=== PATIENT | male | born 1960 | race Two or more races ===

== ENCOUNTER 2023-08-10 06:45 | Emergency (ER) | payer MEDICARE, MEDICAID ==
[~2023-08-10] VITALS: Ht 172.7 cm; Wt 88.5 kg
[~2023-08-10 06:45] MED LIST: ASPI-543 PO; METF-370 PO
[2023-08-10] MEDS ORDERED: LIDOCAINE 1% HCL (LOCAL ANESTH.) INJ 20ML MDV ONE (07:04)
[2023-08-10 07:12] LABS: Basophils # (auto) 0 10 ^3/uL (0-0.2); Eosinophils # (auto) 0.2 10 ^3/uL (0-0.8); Eosinophils % (auto) 4.7 % (0.0-7.0); Hematocrit 28.8 % (41.0-53.0); Hemoglobin 9.9 g/dL (13.5-17.5); Lymphocytes # (auto) 0.9 10 ^3/uL (0.4-5.4); Lymphocytes % (auto) 23.8 % (10.0-50.0); Mean Corpuscular Hemoglobin 32.2 pg (28.0-32.0); Mean Corpuscular Hgb Conc. 34.3 g/dL (32.0-36.0); Mean Corpuscular Volume 94.1 fL (80.0-100.0); Monocytes # (auto) 0.2 10 ^3/uL (0-1.3); Monocytes % (auto) 4.8 % (0.0-12.0); Neutrophils # (auto) 2.5 10 ^3/uL (1.6-8.6); Neutrophils % (auto) 65.7 % (37.0-80.0); Nucleated Red Blood Cells % 0.2 %; Red Blood Cells 3.07 10^6/uL (4.5-5.90); Red Cell Distribution Width 16.7 % (11.8-14.3); White Blood Cell 3.8 10^3/uL (4.4-10.8)
[2023-08-10 07:34] LABS: Chloride 102 mmol/L (98-107); Potassium 4.6 mmol/L (3.5-5.1); Sodium 139 mmol/L (136-145)
[2023-08-10 07:35] LABS: Anion Gap 16 (5-15); Calcium 9.3 mg/dL (8.5-10.1); Carbon Dioxide 21 mmol/L (20-30)
[2023-08-10 07:40] LABS: BUN/Creatinine Ratio 9.3 (10.0-20.0); Glucose 178 mg/dL (74-106)
[2023-08-10 07:43] LABS: INR 1.09 (0.9-1.15); Prothrombin Time 11.4 sec (9.3-11.8)
[2023-08-10 07:46] LABS: Partial Thromboplastin Time 104.8 SEC (24.5-34.5)
[2023-08-10 07:53] LABS: Blood Urea Nitrogen 93 mg/dL (9-23)
[2023-08-10] MEDS ORDERED: LIDOCAINE 1% HCL (LOCAL ANESTH.) INJ 20ML MDV ID ONE (08:15)
[2023-08-10 09:26] VITALS: BP 148/77; PULSE 68; RESP 20; TEMP 98.2; O2SAT 96
== END 2023-08-10 10:02 | disposition home or self-care (01) ==
LOC: ER 06:45 → EDBD 06:45 → ER 10:02
DX: T82.838A Hemorrhage due to vascular prosthetic devices, implants and grafts, initial encounter (principal); I12.9 Hypertensive chronic kidney disease with stage 1 through stage 4 chronic kidney disease, or unspecified chronic kidney disease; E11.22 Type 2 diabetes mellitus with diabetic chronic kidney disease; N18.9 Chronic kidney disease, unspecified; I25.10 Atherosclerotic heart disease of native coronary artery without angina pectoris; E78.5 Hyperlipidemia, unspecified; Z79.82 Long term (current) use of aspirin; Z79.899 Other long term (current) drug therapy
CPT/HCPCS: 12001; 36415; 80048; 85025; 85610; 85730; 99283; J2001

== ENCOUNTER 2024-09-24 20:21 | Inpatient (IN) | payer MEDICARE, MEDICAID ==
[~2024-09-24] VITALS: Ht 172.7 cm; Wt 87.9 kg
--- NOTE | 2024-09-24 20:42 | ED.PDOC ---
GI ASSESSMENT HPI Comments 64 y/o M with PMHX of DM, HTN, HLD, and CAD presents to the ED for CC of vomiting. Patient states that he has been vomiting for x2days with associated symptoms of abdominal pain, nausea, and diarrhea. Patient describes, vomit to be brown emesis. Patient currently receives dialysis on Monday, Monday, and and is complainant with his appointments. Patient denies social history. Patient denies fever, chills, body-aches, or loss of appetite. No new symptoms or modifying factors at this time. Time Seen by MD: 20:35 Primary Care Provider: ERIKA Reviewed Notes: Nurses Notes, Medications, Allergies Allergies: Coded Allergies: NO KNOWN ALLERGIES (Unverified , 10/08/14) Home Meds Reported Medications Aspirin (Aspir-Low) 81 Mg Tab, 81 MG PO DAILY for 30 Days, MG 04/12/19 Metformin Hydrochloride (Metformin Hcl) 500 Mg Tab, 500 MG PO IBID for 30 Days, MG 04/12/19 Information Source: Patient Mode of Arrival: Ambulatory Timing: Days Duration: Since onset Prehospital treatment: None Quality: None Vomitus: Watery Stool: Watery Severity: Moderate Recent: None Recent Hx of: Diabetes Pain Location: Diffuse Modifying Factors: Nothing Associated sign and symptoms: Nausea, Vomiting, Diarrhea Past Medical History PAST MEDICAL HISTORY: CAD, CKF, DM, High Lipids, HTN Surgical History: PTCA Family History Family History: Reviewed,noncontributory to illness Social History Smoker: Non-Smoker Alcohol: Denies ETOH Use Drugs: Denies Drug Use Lives In: Home Constitutional: denies: chills, diaphoresis, fatigue, fever, malaise, sweats, weakness, others EENTM: denies: blurred vision, double vision, ear bleeding, ear discharge, ear drainage, ear pain, ear ringing, eye pain, eye redness, hearing loss, mouth pain , mouth swelling, nasal discharge, nose bleeding, nose congestion, nose pain, photophobia, tearing, throat pain, throat swelling, voice changes, others Respiratory: denies: cough, hemoptysis, orthopnea, SOB at rest, shortness of breath, SOB with excertion, stridor, wheezing, others Cardiovascular: denies: chest pain, dizzy spells, diaphoresis, Dyspnea on exertion, edema, irregular heart beat, left arm pain, lightheadedness, palpitations, PND, syncope, others Gastrointestinal: reports: abdominal pain, diarrhea, vomiting; denies: abdomen distended, blood streaked bowels, constipated, dysphagia, difficulty swallowing, hematemesis, melena, nausea, poor appetite, poor fluid intake, rectal bleeding, rectal pain, others Genitourinary: denies: burning, dysuria, flank pain, frequency, hematuria, incontinence, penile discharge, penile sore, pain, testicle pain, testicle swelling, urgency, others Neurological: reports: headache; denies: dizziness, fainting, left sided numbness, left sided weakness, numbness, paresthesia, pre-existing deficit, right sided numbness, right sided weakness, seizure, speech problems, tingling, tremors, weakness, others Musculoskeletal: denies: back pain, gout, joint pain, joint swelling, muscle pain, muscle stiffness, neck pain, others Integumetry: denies: bruises, change in color, change in hair/nails, dryness, laceration, lesions, lumps, rash, wounds, others Allergic/Immunocompromised: denies: Difficulty Healing, Frequent Infections, Hives, Itching, others Hematologic/Lymphatic: denies: anemia, blood clots, easy bleeding, easy bruising, swollen glands, others Endocrine: denies: excessive hunger, excessive sweating, excessive thirst, excessive urination, flushing, intolerance to cold, intolerance to heat, unexplained weight gain, unexplained weight loss, others Psychiatric: denies: anxiety, bipolar disorder, depression, hopeless, panic disorder, schizophrenia, sleepless, suicidal, others All Other Systems: Reviewed and Negative Physical Exam General Appearance: Moderate Distress HEENT: Normal ENT Inspection, Pharynx Normal, TMs Normal Neck: Full Range of Motion, Non-Tender, Normal, Normal Inspection Respiratory: Chest Non-Tender, Lungs Clear, No Accessory Muscle Use, No Respiratory Distress, Normal Breath Sounds Cardiovascular: No Edema, No JVD, No Murmur, No Gallop, Normal Peripheral Pu lses, Regular Rate/Rhythm Breast Exam: Deferred Gastrointestinal: Diffuse, No Organomegaly, No Pulsatile Mass, Normal Bowel Sounds, Soft, Tenderness Genitalia: Deferred Pelvic: Deferred Rectal: Deferred Extremities: No calf tenderness, Normal capillary refill, Normal range of motion, Non-tender, No pedal edema, Other (The patient has a fistula to the right upper extremity for dialysis) Musculoskeletal : Apperance: Normal Neurologic: Alert, director of partnerships II-XII nml as Tested, No Motor Deficits, Normal Affect, Normal Mood, No Sensory Deficits Cerebellar Function: Normal Reflexes: Normal Skin: Dry, Normal Color, Warm Lymphatic: No Adenopathy Was a procedure done? Was a procedure done?: No GI differential Dx Differential Diagnosis: Gastritis/PUD, Gastroenteritis, Electrolyte Imbalance, Food Poisoning, Bacterial, Viral X-Ray, Labs, Meds, VS Vital Signs Date Time Temp Pulse Resp B/P (MAP) Pulse Ox O2 Delivery O2 Flow Rate FiO2 09/24/24 20:25 97.6 60 18 174/78 (110) 96 CT scan of the abdomen and pelvis shows: IMPRESSION: 1. No free air no free fluid 2. No CT findings to suggest bowel obstruction 3. No calcified gallstones 4. Perirenal stranding bilaterally without hydronephrosis or nephrolithiasis. Renal infection is raised. 5. Postop changes L4-5 and L5-S1 6. 5 cm device in the lower left pelvis adjacent to the bladder correlate with surgical history. IV Hep-Lock has been established The patient's labs are pending The patient was being admitted to the hospitalist Images Reviewed?: Images reviewed and evaluated by me Time of 1ST Reevaluation: 21:05 Reevaluation 1ST: Unchanged Patient Education/Counseling: Diagnosis, Treatment, Prognosis Family Education/Counseling: No Family Present Departure 1 Departure Time of Disposition: 21:46 Impression: Primary Impression: Intractable abdominal pain Additional Impression: Intractable vomiting Disposition: ADMITTED INPATIENT Admit to: Med Surg Condition: Fair Critical Care Note Critical Care Time?: No Stability Stability form required: Yes Unstable for transfer: ED Physician Assesment (Clinical assesment) Heart Score Heart Score: Heart Score Response (Comments) Value History N/A 0 EKG N/A 0 Age N/A 0 Risk Factors N/A 0 Troponin N/A 0 Total 0 I personally scribed for PRETTY HEALY MD ([email or web address]) on 09/24/24 at 20:42. Electronically submitted by Kim Bustamante [email or web address]). PRETTY HEALY MD Sep 24, 2024 20:42
[2024-09-24] MEDS: ONDANSETRON HCL 4 MG/2 ML VIAL IV ONE (20:45)
--- NOTE | 2024-09-24 21:37 | DVH ---
Exam: CT CT AB PEL WO CON-NO ORAL OR IV History: pain Comparison Study: None available at time of dictation. TECHNIQUE: Multidetector CT of the abdomen was performed from lung bases to pubic symphysis. Imaging was performed without IV contrast. Axial, coronal and sagittal multiplanar reformats were obtained fr om the axial data set by the technologist. Radiation Dose Information: CT Dose: CTDI volume is 12.1 mGy. Dose-length product is 690.93 mGy*cm FINDINGS: Evaluation of solid organs is limited due to lack of intravenous contrast use. Findings: Lung Bases: Airspace disease posteriorly in the left lower lobe. Cardiac size is enlarged with of th e coronary artery calcifications. No pleural or pericardial effusion. Liver: The liver is normal in size. No focal lesions. Gallbladder and Biliary Tree: Unremarkable Spleen: Unremarkable Pancreas: The pancreas is grossly normal in appearance. Adrenal Glands: Unremarkable Kidneys: Kidneys are grossly normal without calculi or hydronephrosis. Bladder: Grossly unremarkable for degree of distention. Bowel: The stomach is grossly normal in appearance. Small bowel and colon are normal in caliber and d istribution. The appendix is not visualized; however, no secondary findings of acute appendicitis id entified. Ascites: Absent Lymphadenopathy: No mesenteric, retroperitoneal or periportal lymphadenopathy. Abdominal Wall and Mesentery: Unremarkable. Vasculature: The visualized abdominal aorta is normal in size and caliber. Evaluation of abdominal a nd pelvic vessels is limited due to lack of intravenous contrast. Pelvic Organs: 5 cm bulb device in the lower left pelvis adjacent to the bladder correlate with surgi tyesha history. Musculoskeletal: No aggressive focal bony lesions, acute fractures or dislocation. Changes at L4-5 an d L5-S1 Soft tissues: Unremarkable IMPRESSION: 1. No free air no free fluid 2. No CT findings to suggest bowel obstruction 3. No calcified gallstones 4. Perirenal stranding bilaterally without hydronephrosis or nephrolithiasis. Renal infection is rais ed. 5. Postop changes L4-5 and L5-S1 6. 5 cm device in the lower left pelvis adjacent to the bladder correlate with surgical history. Radiation optimization: All CT scans at this facility use at least one of these dose optimization te chniques: automated exposure control mA and/or kV adjustment per patient size (includes targeted exa ms where dose is matched to clinical indication) or iterative reconstruction.
--- NOTE | 2024-09-24 23:43 | DVHHPRES ---
History of Present Illness Resident Creating Document: HAYLEY ALCALA RESDIENT History of Present Illness This is a 64-year-old male with past history of diabetes type 2, hypertension, dyslipidemia, coronary artery disease (status post PCI, put 3 stent, the latest 1 six-month back), ESRD on maintenance hemodialysis 3 times a week came to the hospital due to vomiting. Per patient, the patient had dialysis today morning, after HD the patient developed nausea and 2 episodes of vomiting which had black content. Patient also reports mild abdominal pain, headache, weakness, sore throat. Patient denies fever, chills, chest pain, shortness of breath, or any recent changes in bladder and bowel movement. PMHx: diabetes type 2, hypertension, dyslipidemia, coronary artery disease (status post PCI, put 3 stent, the latest 1 six-month back), ESRD on maintenance hemodialysis 3 times a week PSHx: Spinal surgery and right shoulder surgery Social history: Patient lives at home with family, ex-smoker and ex heavy alcohol drinker, denies any other drug use Home medication: Lasix, Plavix, aspirin, carbidopa, hydralazine, sevelamer, ferrous sulfate Allergic history: No known allergy Review of Systems Review of Systems General: Reports generalized weak and headache HEENT: No headaches, visiual changes, hearing loss, tinnitus, nasal congestion and discharge, and sore throat. Cardiovascular: Denies chest pain, palpitations, dyspnea on exertion, orthopnea, or claudication. Respiratory: No cough, and wheezing. Gastrointestinal: Reports nausea, and vomiting Genitourinary: No dysuria, hematuria, discharge, frequency, urgency, nocturia, incontinence, and urinary retention. Endocrine: No heat or cold intolerance, polydipsia, polyuria, and polyphagia. Neurological: No dizziness, extremity weakness and numbness, tremors, gait disturbance, seizures, and memory impairment. Psychiatric: Denies depression, anxiety,or insomnia. Musculoskeletal: Denies neck pain, stiffness and swelling, back pain, muscle weakness, joint pain, stiffness, swelling, or limited range of motion. Skin: No rashes, itching, skin lesion, changes in hair, nail, skin texture and breast. Hematologic/Lymphatic: Denies easy bruising, bleeding tendencies, or lymph node enlargement. Allergies: Coded Allergies: NO KNOWN ALLERGIES (Unverified , 2/4/15) Medications Current Medications Medications Dose Ordered Sig/Anisa Route Start Time Stop Time Status Last Admin Dose Admin Nitroglycerin 0.4 mg Q5MINP PRN SL 09/24/24 23:45 UNV Exam Vital Signs Vital Signs Date Time Temp Pulse Resp B/P (MAP) Pulse Ox O2 Delivery O2 Flow Rate FiO2 09/24/24 20:25 97.6 60 18 174/78 (110) 96 Exam General Appearance: Alert, Oriented X3, Cooperative, No acute distress HEENT: Atraumatic, PERRLA, EOMI, Mucous membrane moist/pink Respiratory: Bilateral lower zone crackles Cardiovascular: Regular rate, Normal S1, Normal S2, No murmurs, no chest wall tenderness Abdominal: Normal bowel sounds, Soft, No tenderness, No hepatospenomegaly, No masses Extremities: Bilateral lower limb grade 2 pedal edema Skin: No rashes, No breakdown, No significant lesion Neuro: Normal gait, Normal speech, Strength at 5/5 X4 ext, Normal tone, Sensation intact, Cranial nerves 3-12 NL, Reflexes 2+ Psych/Mental Status: Mental status NL, Mood NL Assessment/Plan Assessment/Plan Possible upper GI bleeding Possible gastritis, likely due to drug-induced NPO Protonix 40 mg b.i.d. Liver ultrasound Zofran p.r.n. Hypertensive emergency Possible acute on chronic mild reduced EF heart failure History of coronary artery disease Continue aspirin and Plavix Lasix 60 mg daily Continue losartan Continue carvedilol Injection hydralazine p.r.n. Diabetes mellitus type 2 ESRD, on maintenance HD Continue sevelamer Counseled Nephrology Dyslipidemia Continue atorvastatin DIET: NPO GI PROPHYLAXIS:: Protonix CODE STATUS: Goal of care discussed for more than 23 minutes, full code DISPOSITION: Med/surge Patient's status and paln discussed with the patient. Case discussed with Dr. Ventura Plan discussed with: Patient, Other (RN) My Orders Orders - HAYLEY ALCALA Procedure Category Date Status Time Admit ADMIT 09/24/24 Transmitted 23:36 Stat Ekg For Chest LEIA 09/24/24 In Process Pain 23:36 Notify Of Changes LEIA 09/24/24 In Process From Base 23:36 Nitroglycerin PHA 09/24/24 Logged Sublingual (Ntrostat 23:45 Date of Service: Sep 24, 2024 Billing Provider: RENAE VENTURA MD Common Visit Codes: 85289-HEROTMZ INP/OBS CARE (HIGH) Secondary Visit Codes: 96377-[id number] CARE PLAN 30 MINUTES HAYLEY ALCALA Sep 24, 2024 23:43 RENAE VENTURA MD Sep 25, 2024 09:19
[2024-09-24] MEDS ORDERED: NITROGLYCERIN 0.4 MG SL TAB SL PRN (23:45)
[2024-09-25] MEDS ORDERED: MORPHINE SULFATE INJ 2 MG/ml SYRG IV PRN
[2024-09-25] MEDS ORDERED: hydrALAZINE HCL 20 MG/ML VL IV PRN
[2024-09-25] MEDS: PANTOPRAZOLE 40 MG/10 ML VIAL INJ IV ONE
[2024-09-25] MEDS ORDERED: ONDANSETRON HCL 4 MG/2 ML VIAL IV PRN
[2024-09-25 00:10] LABS: Basophils # (auto) 0 10 ^3/uL (0-0.2); Basophils % (auto) 0.8 % (0.0-2.0); Eosinophils # (auto) 0.2 10 ^3/uL (0-0.8); Eosinophils % (auto) 5.8 % (0.0-7.0); Hematocrit 38.8 % (41.0-53.0); Hemoglobin 13.2 g/dL (13.5-17.5); Lymphocytes # (auto) 0.4 10 ^3/uL (0.4-5.4); Lymphocytes % (auto) 10.9 % (10.0-50.0); Mean Corpuscular Hemoglobin 31.6 pg (28.0-32.0); Mean Corpuscular Hgb Conc. 33.9 g/dL (32.0-36.0); Mean Corpuscular Volume 93.3 fL (80.0-100.0); Monocytes # (auto) 0.3 10 ^3/uL (0-1.3); Monocytes % (auto) 7.1 % (0.0-12.0); Neutrophils # (auto) 3.1 10 ^3/uL (1.6-8.6); Neutrophils % (auto) 75.4 % (37.0-80.0); Nucleated Red Blood Cells % 0.2 %; Platelet Count (auto) 101 10^3/uL (140-450); Red Blood Cells 4.16 10^6/uL (4.5-5.90); Red Cell Distribution Width 17.2 % (11.8-14.3); White Blood Cell 4.1 10^3/uL (4.4-10.8)
[2024-09-25 00:24] LABS: Alanine Aminotransferase 20 U/L (7-40); Albumin 4.1 g/dL (3.2-4.8); Alkaline Phosphatase 68 U/L (46-116); Anion Gap 13 (5-15); Aspartate Aminotransferase 18 U/L (13-40); BUN/Creatinine Ratio 5.7 (10.0-20.0); Calcium 9.4 mg/dL (8.7-10.4); Carbon Dioxide 25 mmol/L (20-31); Chloride 100 mmol/L (98-107); Glucose 96 mg/dL (74-106); Lipase 38 U/L (12-53); Potassium 3.7 mmol/L (3.5-5.1); Sodium 138 mmol/L (136-145); Total Protein 6.7 g/dL (5.7-8.2)
[2024-09-25 00:29] LABS: Bilirubin, Total 1.5 mg/dL (0.2-1.0); Blood Urea Nitrogen 52 mg/dL (9-23)
[2024-09-25 00:48] LABS: INR 1.12 (0.9-1.15); Prothrombin Time 11.7 sec (9.3-11.8)
[2024-09-25 02:02] LABS: Urine Bacteria None Seen /hpf (None Seen)
[2024-09-25 02:20] LABS: Urine Blood 1+ /uL (Negative); Urine Clarity Clear (Clear); Urine Color Light-Yellow (Yellow); Urine Protein, UAD 3+ (Negative); Urine Squamous Epithelial Cell FEW /hpf (<5); Urine Urobilinogen Normal (Negative); Urine WBC 2 /HPF (0-3); Urine pH 7.5 (5.0-9.0)
[2024-09-25 02:58] VITALS: BP 182/62; PULSE 61; RESP 18; TEMP 97.4; O2SAT 94
[2024-09-25] MEDS ORDERED: SEVE800T8 PO (03:39)
[2024-09-25] MEDS ORDERED: CLOP75TA70 PO (03:39)
[2024-09-25] MEDS ORDERED: HYDR25TA88 PO (03:39)
[2024-09-25] MEDS ORDERED: ISOS1TAB29 PO (03:39)
[2024-09-25] MEDS ORDERED: CARV12.544 PO (03:39)
[2024-09-25] MEDS ORDERED: FURO40TA4 PO (03:39)
--- NOTE | 2024-09-25 04:15 | DVH ---
INDICATION: Hematemisis TECHNIQUE: Multiple real-time sonographic images of the abdomen were obtained. COMPARISON: None FINDINGS: The liver is homogenous in echogenicity. The liver measures 15.1 cm. No intrahepatic bilia ry ductal dilatation is noted. The gallbladder wall measures 0.3 cm and is unremarkable. No gallstones or sludge is seen. The com mon duct measures 0.4 cm and is unremarkable. No pericholecystic fluid is noted. The right kidney measures 8.4 cm. No hydronephrosis. The pancreas is not well visualized due to obscuration from bowel gas. The visualized portions of the IVC and aorta are grossly unremarkable. IMPRESSION: 1. No acute abnormality in the right upper quadrant.
[2024-09-25 04:19] LABS: Amphetamine Screen, Urine Neg (NEGATIVE); Barbiturate Scree,Urine Neg (NEGATIVE); Benzodiazephine Screen, Urine Neg (NEGATIVE); Cannabinoid Screen, Urine Neg (NEGATIVE); Cocaine Screen, Urine Neg (NEGATIVE); Opiate Scree,Urine Neg (NEGATIVE); Phencyclidine Screen, Urine Neg (NEGATIVE)
[2024-09-25] MEDS: LOSARTAN POTASSIUM 50 MG TAB PO ONE (05:14)
[2024-09-25 06:19] LABS: Basophils # (auto) 0 10 ^3/uL (0-0.2); Basophils % (auto) 1.2 % (0.0-2.0); Eosinophils # (auto) 0.3 10 ^3/uL (0-0.8); Hematocrit 38.6 % (41.0-53.0); Hemoglobin 13.1 g/dL (13.5-17.5); Lymphocytes # (auto) 0.6 10 ^3/uL (0.4-5.4); Lymphocytes % (auto) 16.7 % (10.0-50.0); Mean Corpuscular Hemoglobin 31.2 pg (28.0-32.0); Mean Corpuscular Volume 91.8 fL (80.0-100.0); Monocytes # (auto) 0.3 10 ^3/uL (0-1.3); Neutrophils # (auto) 2.3 10 ^3/uL (1.6-8.6); Neutrophils % (auto) 66.1 % (37.0-80.0); Nucleated Red Blood Cells % 0.2 %; Platelet Count (auto) 96 10^3/uL (140-450); Red Blood Cells 4.21 10^6/uL (4.5-5.90); White Blood Cell 3.4 10^3/uL (4.4-10.8)
[2024-09-25 06:34] LABS: Alanine Aminotransferase 21 U/L (7-40); Albumin 3.9 g/dL (3.2-4.8); Alkaline Phosphatase 65 U/L (46-116); Anion Gap 12 (5-15); Aspartate Aminotransferase 15 U/L (13-40); BUN/Creatinine Ratio 6.3 (10.0-20.0); Calcium 9.1 mg/dL (8.7-10.4); Carbon Dioxide 28 mmol/L (20-31); Chloride 99 mmol/L (98-107); Glucose 87 mg/dL (74-106); Potassium 3.7 mmol/L (3.5-5.1); Sodium 139 mmol/L (136-145)
[2024-09-25 06:35] LABS: Total Protein 6.2 g/dL (5.7-8.2)
[2024-09-25 06:42] LABS: Bilirubin, Total 1.3 mg/dL (0.2-1.0); Blood Urea Nitrogen 60 mg/dL (9-23)
--- NOTE | 2024-09-25 07:46 | DVH ---
CHEST RADIOGRAPH Indication: Pneumonia Technique: Single frontal view of the chest was obtained COMPARISON: None FINDINGS: Lines and Tubes: None Lungs: Congestion Pleura: No effusion. No pneumothorax. Cardiomediastinal contours: Unremarkable Bones: Unremarkable IMPRESSION: Pulmonary vascular congestion versus viral pneumonia.
[2024-09-25 08:42] VITALS: BP 164/54; PULSE 60; RESP 16; TEMP 98; O2SAT 99
[2024-09-25] MEDS: ASPirin 81 mg TAB PO SCH (09:06)
[2024-09-25] MEDS: PANTOPRAZOLE 40 MG/10 ML VIAL INJ IV SCH (09:06)
[2024-09-25] MEDS: SEVELAMER 800 MG TAB PO SCH (09:06)
[2024-09-25] MEDS: CLOPIDOGREL BISULFATE 75 MG TAB PO SCH (09:07)
[2024-09-25] MEDS: LOSARTAN POTASSIUM 50 MG TAB PO SCH (09:08)
[2024-09-25] MEDS: CARVEDILOL 3.125 MG TAB PO SCH (09:09)
--- NOTE | 2024-09-25 10:37 | DVHINCON2 ---
Date of service: Sep 25, [address] Humphrey Reason for Consultation ESRD on HD History of Present Illness This is a 64-year-old male with past history of ESRD on HD ,diabetes type 2, hypertension, dyslipidemia, coronary artery disease status post PCI presenting to the hospital due to vomiting. Per patient, the patient had dialysis yesterday morning, after HD the patient developed nausea and 2 episodes of vomiting whichwas dark. Patient also reports mild abdominal pain, headache, weakness, sore throat. Patient denies fever, chills, chest pain, shortness of breath, or any recent changes in bladder and bowel movement. Admitted for further evaluation Nephrology consulted for dialysis . His schedule is TTS Past Medical History PMHx: diabetes type 2, hypertension, dyslipidemia, coronary artery disease status post PCI ESRD on hemodialysis Past Surgical History PSHx: Spinal surgery and right shoulder surgery, Dialysis access Family History: Patient reports no known family medical history. Social History Social history: Patient lives at home with family, ex-smoker and ex heavy alcohol drinker, denies any other drug use Allergies: Coded Allergies: NO KNOWN ALLERGIES (Unverified , 10/08/14) Home Meds Reported Medications Sevelamer Carbonate (Renvela) 800 Mg Tab, 2 TAB PO TID, #540 TAB 3 Refills 09/25/24 Clopidogrel Bisulfate (CLOPIDOGREL) 75 Mg Tab, 75 MG PO DAILY for 30 Days, MG 09/25/24 Isosorbide Mononitrate (Isosorbide Mononitrate Er) 60 Mg Tab, 60 MG PO for 30 Days, MG 09/25/24 Furosemide (Furosemide) 40 Mg Tab, 40 MG PO BIDD for 30 Days, MG 09/25/24 Carvedilol (Carvedilol) 12.5 Mg Tab, 12.5 MG PO Q12HR for 30 Days, MG 09/25/24 Hydralazine Hcl (Hydralazine Hcl) 25 Mg Tab, 25 MG PO for 30 Days, MG 09/25/24 Aspirin (Aspir-Low) 81 Mg Tab, 81 MG PO DAILY for 30 Days, MG 04/12/19 Metformin Hydrochloride (Metformin Hcl) 500 Mg Tab, 500 MG PO IBID for 30 Days, MG 04/12/19 Current Medications Current Medications Medications (Trade) Dose Ordered Sig/Anisa Route PRN Reason Start Time Stop Time Status Last Admin Nitroglycerin (Ntrostat Sublingual) 0.4 mg Q5MINP PRN SL FOR CHEST PAIN 09/24/24 23:45 Pantoprazole Sodium (Protonix) 40 mg BID IV 09/25/24 10:00 09/25/24 09:06 Hydralazine HCl (Apresoline Injection) 10 mg Q6HP PRN IV SBP>160 09/25/24 00:00 Ondansetron HCl (Zofran) 4 mg Q6HPRN PRN IV NAUSEA / VOMITING 09/25/24 00:00 Morphine Sulfate 1 mg Q6HP PRN IV MODERATE PAIN (4-6 PAIN SCALE) 09/25/24 00:00 Carvedilol (Coreg Tablet) 3.125 mg Q12HR PO 09/25/24 10:00 09/25/24 09:09 Losartan Potassium (Cozaar Tablet) 50 mg DAILY PO 09/25/24 10:00 09/25/24 09:08 Clopidogrel Bisulfate (Plavix) 75 mg DAILY PO 09/25/24 10:00 09/25/24 09:07 Aspirin 81 mg DAILY PO 09/25/24 10:00 09/25/24 09:06 Sevelamer HCl (Renagel) 800 mg TIDWM PO 09/25/24 08:00 09/25/24 09:06 Atorvastatin Calcium (Lipitor) 40 mg HS PO 09/25/24 22:00 Review of Systems 12 point ROS negative except as in HPI Vital Signs Vital Signs Date Time Temp Pulse Resp B/P (MAP) Pulse Ox O2 Delivery O2 Flow Rate FiO2 09/25/24 09:09 60 164/50 09/25/24 08:42 98.0 16 99 98.0 09/25/24 02:58 Room Air* 0 21 Physical Exam General Appearance: Alert, Oriented X3, No acute distress HEENT: No JVD Respiratory: Bilateral good air entry Cardiovascular: Regular rate, Normal S1, Normal S2, No murmurs Abdominal: Normal bowel sounds, Soft, No tenderness Extremities: Bilateral lower limb edema Neuro: Normal gait, Normal speech, Strength at 5/5 X4 ext, Normal tone, Sensation intact, Cranial nerves 3-12 NL, Reflexes 2+ Labs/Diagnostic Data Labs Test 09/25/24 05:58 09/24/24 23:55 09/24/24 20:37 Range/Units White Blood Count 3.4 L 4.4-10.8 10^3/uL Red Blood Count 4.21 L 4.5-5.90 10^6/uL Hemoglobin 13.1 L 13.5-17.5 g/dL Hematocrit 38.6 L 41.0-53.0 % Mean Corpuscular Volume 91.8 80.0-100.0 fL Mean Corpuscular Hemoglobin 31.2 28.0-32.0 pg Mean Corpuscular Hemoglobin Concent 34.0 32.0-36.0 g/dL Red Cell Distribution Width 17.0 H 11.8-14.3 % Platelet Count 96 L 140-450 10^3/uL Mean Platelet Volume 7.2 6.9-10.8 fL Neutrophils (%) (Auto) 66.1 37.0-80.0 % Lymphocytes (%) (Auto) 16.7 10.0-50.0 % Monocytes (%) (Auto) 8.0 0.0-12.0 % Eosinophils (%) (Auto) 8.0 H 0.0-7.0 % Basophils (%) (Auto) 1.2 0.0-2.0 % Neutrophils # (Auto) 2.3 1.6-8.6 10 ^3/uL Lymphocytes # (Auto) 0.6 0.4-5.4 10 ^3/uL Monocytes # (Auto) 0.3 0-1.3 10 ^3/uL Eosinophils # (Auto) 0.3 0-0.8 10 ^3/uL Basophils # (Auto) 0 0-0.2 10 ^3/uL Nucleated Red Blood Cells 0.2 % Sodium Level 139 136-145 mmol/L Potassium Level 3.7 3.5-5.1 mmol/L Chloride Level 99 98-107 mmol/L Carbon Dioxide Level 28 20-31 mmol/L Anion Gap 12 5-15 Blood Urea Nitrogen 60 H 9-23 mg/dL Creatinine 9.54 H 0.700-1.30 mg/dL Glomerular Filtration Rate Calc 6 >90 mL/min BUN/Creatinine Ratio 6.3 L 10.0-20.0 Serum Glucose 87 74-106 mg/dL Calcium Level 9.1 8.7-10.4 mg/dL Total Bilirubin 1.3 H 0.2-1.0 mg/dL Aspartate Amino Transferase (AST) 15 13-40 U/L Alanine Aminotransferase (ALT) 21 7-40 U/L Alkaline Phosphatase 65 46-116 U/L B-Type Natriuretic Peptide 2887.67 0-100 pg/mL Total Protein 6.2 5.7-8.2 g/dL Albumin 3.9 3.2-4.8 g/dL Prothrombin Time 11.7 9.3-11.8 sec Prothrombin Time INR 1.12 0.9-1.15 Lipase 38 12-53 U/L Urine Color Light-yellow Yellow Urine Clarity Clear Clear Urine pH 7.5 5.0-9.0 Urine Specific Mchenry 1.010 1.001-1.035 Urine Protein 3+ H Negative Urine Ketones Negative Negative Urine Blood 1+ H Negative /uL Urine Nitrite Negative Negative Urine Bilirubin Negative Negative Urine Urobilinogen Normal Negative mg/dL Urine Leukocyte Esterase Negative Negative /uL Urine RBC 12 0 - 3 /hpf Urine Microscopic WBC 2 0-3 /HPF Urine Squamous Epithelial Cells Few <5 /hpf Urine Bacteria None seen None Seen /hpf Urine Glucose 2+ H Normal mg/dL Urine Opiates Screen Neg NEGATIVE Urine Fentanyl Screen Neg NEGATIVE Urine Barbiturates Screen Neg NEGATIVE Urine Phencyclidine Screen Neg NEGATIVE Urine Amphetamines Screen Neg NEGATIVE Urine Benzodiazepines Screen Neg NEGATIVE Urine Cocaine Screen Neg NEGATIVE Urine Cannabinoids Screen Neg NEGATIVE Assessment ESRD on HD Probable GI bleed Gastritis CAD s/p PCI HTN DM II HLD Plan/Recommendation No evidence of fluid overload . Electrolytes in acceptable range . Will continue HD on TTS schedule . Plan discussed with: Patient VIDAL GREEN MD Sep 25, 2024 10:37
--- NOTE | 2024-09-25 14:24 | DVHSR ---
APPROVED REPORT EXAM: Two-dimensional and M-mode echocardiogram with Doppler and color Doppler. Blood Pressure: 174/76 mmHg INDICATION ?hf RISK FACTORS Height: 5'8, Weight: 185 DIMENSIONS LVDd5.9 (3.8-5.7cm)LA (2D)5.7 (1.9-4.0cm)Aortic Root3.7 (2.0-3.7cm) LVDs4.8 (2.5-4.0cm)LA (MM) (1.9-4.0cm)Aortic Cusp Exc1.9 (1.5-2.0cm) EF (%) 50.0 (55-70%)Rt. Atrium3.7 (1.9-4.0cm)Asc. Aorta3.4 cm IVSd1.0 (0.7-1.1cm)RV (D)4.9 (1.8-2.4cm) PWd1.3 (0.7-1.1cm) Mitral Valve MitralMitral Stenosis E wave1.10m/sMV Mean GR.mmHg A wave0.58m/sMV Peak GR.50mmHg E/A ratio1.92D MVAcm2 DECEL [id number] 1/2 Timems Aortic Valve Aortic ValveAortic Stenosis V10.75m/Amelia Mean GR.4mmHg V21.25m/Amelia Peak GR.6mmHg LVOT Diameter2.6 (1.8-2.4cm)Doppler AVA3.18cm2 Pulmonic Valve V20.91m/s Tricuspid Valve TR Velocity3.35m/s [id number] LEFT VENTRICLE The left ventricle is mildly dilated in size. Wall thickness is upper limit of normal. Ejection fra ction is low normal and is estimated at 50%. There is no regional wall motion abnormalities. There is grade II diastolic dysfunction with evidence of elevated left-sided filling pressure. RIGHT VENTRICLE Moderately dilated in size. Systolic function appears to be preserved. ATRIA The left atrium is moderately dilated in size. The right atrium is mildly dilated in size. Not well visualized. MITRAL VALVE There is mild mitral annular calcification. No significant stenosis or regurgitation. PULMONIC VALVE Likely normal. TRICUSPID VALVE Normal structure and function. There is mild tricuspid regurgitation. PA systolic pressure is estim ated at 60-65 mm Hg. AORTIC VALVE Normal structure and function. GREAT VESSELS Aortic root is of normal size. Proximal ascending aorta is not well visualized. PERICARDIAL EFFUSION No pericardial effusion. IVC is of normal size and collapses normally with inspiration Conclusion Mildly dilated left ventricle with low-normal systolic function. Ejection fraction is estimated at 50%. Dilated right ventricle with a preserved systolic function. Grade II diastolic dysfunction with evidence of elevated left-sided filling pressure. No hemodynamically significant valvular disease. [id number] pulmonary hypertension with estimated PA systolic pressure of 60-65 mm Hg. No significant pericardial effusion.
--- NOTE | 2024-09-25 16:25 | DVHPNRES ---
Progress Note Date Seen: Sep 25, 2024 Resident Creating Document: LANE JE[facility] RESIDENT Has the PT tested + for MRSA If YES, has PT been informed?: No Medical Necessity Reason Pt with a Central, PICC or Fol: No Medical Necessity Reason Coffee ground emesis Subjective Review of Systems This is a 64-year-old male with past history of diabetes type 2, hypertension, dyslipidemia, coronary artery disease (status post PCI x 3 stent, last one was 6 months), ESRD with HD TTS presented to the ED with ground emesis at home and also on his way to the ED vomiting. According to the patient, he had dialysis yesterday morning. While at home he became dizzy, weak and vomited about 1/2 cup of coffee ground emesis. He felt unwell and decided to come to ED. On his way, he had another coffee ground emesis. Patient also reports mild abdominal pain, headache, weakness, sore throat. Patient denies fever, chills, chest pain, shortness of breath, or any recent changes in bladder and bowel movement. Of note, the patient was on DAPT (PLAVIX AND ASPIRIN). Per patient, his last visit his cardiology discontinue the Plavix and started him on Eliquis and aspirin. Patient has been taking this medication without any complication in addition to other medications. He also mentioned that about 2 days ago he took ibuprofen for pains. Patient denies smoking or drinking alcoholic beverage; however, his pulled into the side and did mentioned that patient does take alcohol at home sometimes. He takes Eliquis because patient mentioned he had a clot. Constitutional: Denies fever no chills no feeling of malaise HEENT: Denies headache, ear pain, ear discharges, conjunctivitis, nasal discharge throat pain Cardiovascular: Denies chest pain, palpitation, orthopnea, PND, or pedal edema Respiratory: Denies shortness of breath, cough cough, sputum production, hemoptysis, GI: mild abdominal pain, No nausea, vomiting, diarrhea, hematemesis, hematochezia, : Denies frequency, urgency, hematuria, Endocrine: Denies unintentional weight gain or weight loss, feeling of hot flashes, Qasim: Denies easy bruising, bleeding disorders, epistaxis Musculoskeletal: Denies joint pains, muscle aches Psych: No evidence of depression, glenn, suicidal ideation Objective vital signs Vital Sign Date Time Temp Pulse Resp B/P (MAP) Pulse Ox O2 Delivery O2 Flow Rate FiO2 09/25/24 10:00 57 160/91 09/25/24 08:42 98.0 16 99 98.0 09/25/24 02:58 Room Air* 0 21 Total Intake and Output 09/24/24 09/24/24 09/25/24 15:00 23:00 07:00 Intake Total 0 ml Output Total 0 ml Balance 0 ml medications Current Medications Medications Dose Ordered Sig/Anisa Route Start Time Stop Time Status Last Admin Dose Admin Nitroglycerin 0.4 mg Q5MINP PRN SL 09/24/24 23:45 Pantoprazole Sodium 40 mg BID IV 09/25/24 10:00 09/25/24 09:06 40 MG Hydralazine HCl 10 mg Q6HP PRN IV 09/25/24 00:00 Ondansetron HCl 4 mg Q6HPRN PRN IV 09/25/24 00:00 Morphine Sulfate 1 mg Q6HP PRN IV 09/25/24 00:00 Carvedilol 3.125 mg Q12HR PO 09/25/24 10:00 09/25/24 09:09 3.125 MG Losartan Potassium 50 mg DAILY PO 09/25/24 10:00 09/25/24 09:08 50 MG Clopidogrel Bisulfate 75 mg DAILY PO 09/25/24 10:00 09/25/24 09:07 75 MG Aspirin 81 mg DAILY PO 09/25/24 10:00 09/25/24 09:06 81 MG Sevelamer HCl 800 mg TIDWM PO 09/25/24 08:00 09/25/24 11:58 800 MG Atorvastatin Calcium 40 mg HS PO 09/25/24 22:00 Examination General Appearance: Alert, Oriented X3, Cooperative, No acute distress and complaining of hunger as he was NPO for possibility of EGD today HEENT: Atraumatic, PERRLA, EOMI, Mucous membrane moist/pink Respiratory: Clear to auscultation, Normal air movement Cardiovascular: Regular rate, Normal S1, Normal S2, No murmurs, no chest wall tenderness Abdominal: Mild tenderness, bowel sounds present Extremities: Pitting edema, Normal pulses, No tenderness/swelling Skin: No rashes, No breakdown, No significant lesion Neuro: Normal gait, Normal speech, Strength at 5/5 X4 ext, Normal tone, Sensation intact, Cranial nerves 3-12 NL, Reflexes 2+ Psych/Mental Status: Mental status NL, Mood NL laboratory and microbiology Laboratory Tests 09/25/24 05:58 Test 09/25/24 05:58 Range/Units Serum Glucose 87 74-106 mg/dL Problem List/Assessment/Plan Problem List/Assessment/Plan Assessment Possible GI bleed Coffee-ground emesis Thrombocytopenia End-stage renal disease on hemodialysis TTS Diabetes type 2, Hypertension Dyslipidemia, History of coronary artery disease (status post PCI x 3 stent, last one was 6 months) History of blood clot, hence on eliquis PLAN Protonix 40 mg b.i.d. Zofran GI consult Hydralazine 10 mg p.r.n. if SBP> 170 Continue Home medications IV Heparin 5000 units Code status: Full Goal of care was discussed for more than 35 minutes Case and plan discussed with Plan discussed with: Patient, Spouse My Orders My Orders Orders - L[facility] Procedure Category Date Status Time Echo 2d Mode Cardiac US 09/25/24 Resulted DOP 07:59 * Gi Dvh Hot Knife Cutter CONS 09/25/24 Transmitted 15:18 Renal DIET 09/25/24 Transmitted Standard(2gna,3gk,Lopho) Dinner Npo (Nothing By DIET 09/25/24 Transmitted Mouth) Diet Dinner LANE [facility] Sep 25, 2024 16:25
[2024-09-25 20:57] VITALS: BP 154/59; PULSE 61; RESP 16; TEMP 98.3; O2SAT 97
[2024-09-25] MEDS: ATORVASTATIN 20 MG TAB PO SCH (21:17)
[2024-09-25 22:25] VITALS: BP 163/69; PULSE 60; RESP 19; TEMP 98.3; O2SAT 96
[2024-09-25 22:39] VITALS: PULSE 64; RESP 18; O2SAT 95
[2024-09-26] VITALS (8 sets, daily range): BP systolic 137–159; BP diastolic 49–76; PULSE 57–64; RESP 16–20; TEMP 97.7–98.5; O2SAT 94–98
[2024-09-26] MEDS ORDERED: SODIUM CHL 0.9% 1000 ML BAG XX ONE (07:00)
[2024-09-26 09:40] LABS: Basophils # (auto) 0 10 ^3/uL (0-0.2); Basophils % (auto) 0.8 % (0.0-2.0); Eosinophils # (auto) 0.3 10 ^3/uL (0-0.8); Eosinophils % (auto) 8.9 % (0.0-7.0); Hematocrit 37.5 % (41.0-53.0); Hemoglobin 12.7 g/dL (13.5-17.5); Lymphocytes # (auto) 0.6 10 ^3/uL (0.4-5.4); Lymphocytes % (auto) 16.3 % (10.0-50.0); Mean Corpuscular Hemoglobin 31.2 pg (28.0-32.0); Mean Corpuscular Hgb Conc. 33.8 g/dL (32.0-36.0); Mean Corpuscular Volume 92.5 fL (80.0-100.0); Monocytes # (auto) 0.3 10 ^3/uL (0-1.3); Monocytes % (auto) 7.9 % (0.0-12.0); Neutrophils # (auto) 2.6 10 ^3/uL (1.6-8.6); Neutrophils % (auto) 66.1 % (37.0-80.0); Nucleated Red Blood Cells % 0.3 %; Platelet Count (auto) 104 10^3/uL (140-450); Red Blood Cells 4.06 10^6/uL (4.5-5.90); Red Cell Distribution Width 16.6 % (11.8-14.3); White Blood Cell 3.9 10^3/uL (4.4-10.8)
[2024-09-26 09:59] LABS: Anion Gap 14 (5-15); Carbon Dioxide 24 mmol/L (20-31); Chloride 100 mmol/L (98-107); Potassium 4.2 mmol/L (3.5-5.1); Sodium 138 mmol/L (136-145)
[2024-09-26 10:05] LABS: BUN/Creatinine Ratio 5.7 (10.0-20.0); Glucose 86 mg/dL (74-106)
[2024-09-26 10:09] LABS: Blood Urea Nitrogen 61 mg/dL (9-23)
--- NOTE | 2024-09-26 11:36 | DVHPN2 ---
Progress Note - Dictate Date Seen: Sep 26, 2024 Has the PT tested + for MRSA If YES, has PT been informed?: No Medical Necessity Reason Pt with a Central, PICC or Fol: No Subjective no complaints vital signs Vital Sign Date Time Temp Pulse Resp B/P (MAP) Pulse Ox O2 Delivery O2 Flow Rate FiO2 09/26/24 08:00 16 97 Room Air* 0 21 09/26/24 05:00 97.7 57 159/72 (101) 97.7 Total Intake and Output 09/25/24 09/25/24 09/26/24 15:00 23:00 07:00 Intake Total 900 ml Balance 900 ml medications Current Medications Medications Dose Ordered Sig/Anisa Route Start Time Stop Time Status Last Admin Dose Admin Nitroglycerin 0.4 mg Q5MINP PRN SL 09/24/24 23:45 Pantoprazole Sodium 40 mg BID IV 09/25/24 10:00 09/26/24 10:13 40 MG Hydralazine HCl 10 mg Q6HP PRN IV 09/25/24 00:00 Ondansetron HCl 4 mg Q6HPRN PRN IV 09/25/24 00:00 Morphine Sulfate 1 mg Q6HP PRN IV 09/25/24 00:00 Carvedilol 3.125 mg Q12HR PO 09/25/24 10:00 09/25/24 21:16 3.125 MG Losartan Potassium 50 mg DAILY PO 09/25/24 10:00 09/25/24 09:08 50 MG Clopidogrel Bisulfate 75 mg DAILY PO 09/25/24 10:00 09/25/24 09:07 75 MG Aspirin 81 mg DAILY PO 09/25/24 10:00 09/25/24 09:06 81 MG Sevelamer HCl 800 mg TIDWM PO 09/25/24 08:00 09/26/24 10:13 800 MG Atorvastatin Calcium 40 mg HS PO 09/25/24 22:00 09/25/24 21:17 40 MG objective General Appearance: Alert, Oriented X3, No acute distress HEENT: No JVD Respiratory: Bilateral good air entry Cardiovascular: Regular rate, Normal S1, Normal S2, No murmurs Abdominal: Normal bowel sounds, Soft, No tenderness Extremities: Edema + Neuro: No focal deficits laboratory and microbiology Laboratory Tests 09/26/24 09:17 Test 09/26/24 09:17 Range/Units Serum Glucose 86 74-106 mg/dL Problem List ESRD on HD Probable GI bleed Gastritis CAD s/p PCI HTN DM II HLD Assessment/Plan HD today Hb is stable . Cleared from renal standpoint after dc today Plan discussed with: Patient VIDAL GREEN MD Sep 26, 2024 11:36
--- NOTE | 2024-09-26 13:01 | DVHCONRES ---
Date Seen: Sep 26, 2024 Resident Creating Document: [facility]ICO[facility] D[facility] RESIDENT Referring Physician Dr. Aranda. Reason for Consultation Coffee ground emessis History of Present Illness Hospitalization: 64-year-old male with a history of type 2 diabetes, hypertension, dyslipidemia, coronary artery disease (status post PCI with three stents), and ESRD on maintenance hemodialysis presented with vomiting after dialysis. He reported nausea, two episodes of black vomit, mild abdominal pain, headache, weakness, and sore throat, but denied fever, chills, chest pain, shortness of breath, or changes in bladder and bowel movements. His past surgical history includes spinal and right shoulder surgery. He lives with family, is an ex-smoker and ex-heavy alcohol drinker, and takes multiple medicat ions including Lasix, Plavix, and aspirin. He has no known allergies. Past Medical History diabetes type 2, hypertension, dyslipidemia, coronary artery disease (status post PCI, put 3 stent, the latest 1 six-month back), ESRD on maintenance hemodialysis 3 times a week Past Surgical History Spinal surgery and right shoulder surgery Family History: Patient reports no known family medical history. Family History Non contributary Social History Patient lives at home with family, ex-smoker and ex heavy alcohol drinker, denies any other drug use Allergies: Coded Allergies: NO KNOWN ALLERGIES (Unverified , 10/08/14) Home Meds Reported Medications Sevelamer Carbonate (Renvela) 800 Mg Tab, 2 TAB PO TID, #540 TAB 3 Refills 09/25/24 Clopidogrel Bisulfate (CLOPIDOGREL) 75 Mg Tab, 75 MG PO DAILY for 30 Days, MG 09/25/24 Isosorbide Mononitrate (Isosorbide Mononitrate Er) 60 Mg Tab, 60 MG PO for 30 Days, MG 09/25/24 Furosemide (Furosemide) 40 Mg Tab, 40 MG PO BIDD for 30 Days, MG 09/25/24 Carvedilol (Carvedilol) 12.5 Mg Tab, 12.5 MG PO Q12HR for 30 Days, MG 09/25/24 Hydralazine Hcl (Hydralazine Hcl) 25 Mg Tab, 25 MG PO for 30 Days, MG 09/25/24 Aspirin (Aspir-Low) 81 Mg Tab, 81 MG PO DAILY for 30 Days, MG 04/12/19 Metformin Hydrochloride (Metformin Hcl) 500 Mg Tab, 500 MG PO IBID for 30 Days, MG 04/12/19 Current Medications Current Medications Medications (Trade) Dose Ordered Sig/Anisa Route PRN Reason Start Time Stop Time Status Last Admin Atorvastatin Calcium (Lipitor) 40 mg HS PO 09/25/24 22:00 09/25/24 21:17 Vital Signs Vital Signs Date Time Temp Pulse Resp B/P (MAP) Pulse Ox O2 Delivery O2 Flow Rate FiO2 09/26/24 08:00 16 97 Room Air* 0 21 09/26/24 05:00 97.7 57 159/72 (101) 97.7 Labs/Diagnostic Data Labs Test 09/26/24 09:17 09/25/24 05:58 09/24/24 23:55 09/24/24 20:37 Range/Units White Blood Count 3.9 L 4.4-10.8 10^3/uL Red Blood Count 4.06 L 4.5-5.90 10^6/uL Hemoglobin 12.7 L 13.5-17.5 g/dL Hematocrit 37.5 L 41.0-53.0 % Mean Corpuscular Volume 92.5 80.0-100.0 fL Mean Corpuscular Hemoglobin 31.2 28.0-32.0 pg Mean Corpuscular Hemoglobin Concent 33.8 32.0-36.0 g/dL Red Cell Distribution Width 16.6 H 11.8-14.3 % Platelet Count 104 L 140-450 10^3/uL Mean Platelet Volume 7.7 6.9-10.8 fL Neutrophils (%) (Auto) 66.1 37.0-80.0 % Lymphocytes (%) (Auto) 16.3 10.0-50.0 % Monocytes (%) (Auto) 7.9 0.0-12.0 % Eosinophils (%) (Auto) 8.9 H 0.0-7.0 % Basophils (%) (Auto) 0.8 0.0-2.0 % Neutrophils # (Auto) 2.6 1.6-8.6 10 ^3/uL Lymphocytes # (Auto) 0.6 0.4-5.4 10 ^3/uL Monocytes # (Auto) 0.3 0-1.3 10 ^3/uL Eosinophils # (Auto) 0.3 0-0.8 10 ^3/uL Basophils # (Auto) 0 0-0.2 10 ^3/uL Nucleated Red Blood Cells 0.3 % Sodium Level 138 136-145 mmol/L Potassium Level 4.2 3.5-5.1 mmol/L Chloride Level 100 98-107 mmol/L Carbon Dioxide Level 24 20-31 mmol/L Anion Gap 14 5-15 Blood Urea Nitrogen 61 H 9-23 mg/dL Creatinine 10.67 *H 0.700-1.30 mg/dL Glomerular Filtration Rate Calc 5 >90 mL/min BUN/Creatinine Ratio 5.7 L 10.0-20.0 Serum Glucose 86 74-106 mg/dL Calcium Level 9.0 8.7-10.4 mg/dL Total Bilirubin 1.3 H 0.2-1.0 mg/dL Aspartate Amino Transferase (AST) 15 13-40 U/L Alanine Aminotransferase (ALT) 21 7-40 U/L Alkaline Phosphatase 65 46-116 U/L B-Type Natriuretic Peptide 2887.67 0-100 pg/mL Total Protein 6.2 5.7-8.2 g/dL Albumin 3.9 3.2-4.8 g/dL Prothrombin Time 11.7 9.3-11.8 sec Prothrombin Time INR 1.12 0.9-1.15 Lipase 38 12-53 U/L Urine Color Light-yellow Yellow Urine Clarity Clear Clear Urine pH 7.5 5.0-9.0 Urine Specific Cutler 1.010 1.001-1.035 Urine Protein 3+ H Negative Urine Ketones Negative Negative Urine Blood 1+ H Negative /uL Urine Nitrite Negative Negative Urine Bilirubin Negative Negative Urine Urobilinogen Normal Negative mg/dL Urine Leukocyte Esterase Negative Negative /uL Urine RBC 12 0 - 3 /hpf Urine Microscopic WBC 2 0-3 /HPF Urine Squamous Epithelial Cells Few <5 /hpf Urine Bacteria None seen None Seen /hpf Urine Glucose 2+ H Normal mg/dL Urine Opiates Screen Neg NEGATIVE Urine Fentanyl Screen Neg NEGATIVE Urine Barbiturates Screen Neg NEGATIVE Urine Phencyclidine Screen Neg NEGATIVE Urine Amphetamines Screen Neg NEGATIVE Urine Benzodiazepines Screen Neg NEGATIVE Urine Cocaine Screen Neg NEGATIVE Urine Cannabinoids Screen Neg NEGATIVE Microbiology Date/Time Source Procedure Growth Status 09/24/24 20:37 Voided Urine Urine Culture - Preliminary Resulted Assessment GI assessment: #Possible GI bleed, Coffee-ground emesis, HnH stable. #Gastritis #Possible gastritis, likely due to drug-induced DAPT #Thrombocytopenia, mild #End-stage renal disease on hemodialysis #Diabetes type 2, #Hypertension #Dyslipidemia #Obesity, BMI 29.5 #History of coronary artery disease (status post PCI x 3 stent, last one was 6 months) #History of blood DVT left leg, hence on eliquis #History of PAD, S/P bypass, left leg #Hypertensive emergency #Possible acute on chronic mild reduced EF heart failure #History of Spinal surgery and right shoulder surgery #Viral Pneumonia Plan/Recommendation GI Plan: #Medications: IV b.i.d. pantoprazole to continue #Labs: Trend labs with daily CMP and H&H with transfusion threshold below 8 given CAD. #Imaging/other work up: Check FOBT #Procedure: Keep the patient NPO, possible EGD tomorrow morning. Further recommendation based on the results. #please scheduled follow up with GI as outpatient with Dr. Arnaud Helm. Thank you so much for the opportunity to consult on your patient. GI team will follow the patient. In case of any questions or concerns please feel free to reach out. Case and action plan discussed with Dr. Constanza Helm. Complex care planning needed total 43 minutes of detailed discussion. The patient and caregiver team agreed to the plan. Plan discussed with: Patient, Other (primary team. ) NICOLE DIAL RESIDENT Sep 26, 2024 13:01
--- NOTE | 2024-09-26 19:37 | DVHPNRES ---
Progress Note Date Seen: Sep 26, 2024 Resident Creating Document: LANE [facility] RESIDENT Has the PT tested + for MRSA If YES, has PT been informed?: No Medical Necessity Reason Pt with a Central, PICC or Fol: No Medical Necessity Reason 2 episodes for hemetemesis ESRD Subjective Review of Systems This is a 64-year-old male with past history of diabetes type 2, hypertension, dyslipidemia, coronary artery disease (status post PCI x 3 stent, last one was 6 months), ESRD with HD TTS presented to the ED with ground emesis at home and also on his way to the ED vomiting. According to the patient, he had dialysis yesterday morning. While at home he became dizzy, weak and vomited about 1/2 cup of coffee ground emesis. He felt unwell and decided to come to ED. On his way, he had another coffee ground emesis. Patient also reports mild abdominal pain, headache, weakness, sore throat. Patient denies fever, chills, chest pain, shortness of breath, or any recent changes in bladder and bowel movement. Of note, the patient was on DAPT (PLAVIX AND ASPIRIN). Per patient, his last visit his cardiology discontinue the Plavix and started him on Eliquis and aspirin. Patient has been taking this medication without any complication in addition to other medications. He also mentioned that about 2 days ago he took ibuprofen for pains. Patient denies smoking or drinking alcoholic beverage; however, his pulled into the side and did mentioned that patient does take alcohol at home sometimes. He takes Eliquis because patient mentioned he had an thrombus in his left leg. History of PAD, S/P bypass, left leg PN 09/26/2024 Patient is seen and examined at the bedside today with his present. Patient denied any new hematemesis, abdominal pain, nausea or chest pains. Patient was also seen by his immigration inspector and the plan was for him to have dialysis today. Patient was seen by GI today and the plan is for him to have an EGD tomorrow to rule out any possible source of bleeding. Of note, patient said he has been taking ibuprofen in addition for pain joint pain in addition to his anticoagulant. hgb: 12.7 ; BP: 159/76, Temp: 97.8 Will keep patient NPO at midnight Objective vital signs Vital Sign Date Time Temp Pulse Resp B/P (MAP) Pulse Ox O2 Delivery O2 Flow Rate FiO2 09/26/24 17:00 97.8 58 16 152/75 (100) 95 97.8 09/26/24 08:00 Room Air* 0 21 Total Intake and Output 09/25/24 09/25/24 09/26/24 15:00 23:00 07:00 Intake Total 900 ml Balance 900 ml medications Current Medications Medications Dose Ordered Sig/Anisa Route Start Time Stop Time Status Last Admin Dose Admin Nitroglycerin 0.4 mg Q5MINP PRN SL 09/24/24 23:45 Pantoprazole Sodium 40 mg BID IV 09/25/24 10:00 09/26/24 10:13 40 MG Hydralazine HCl 10 mg Q6HP PRN IV 09/25/24 00:00 Ondansetron HCl 4 mg Q6HPRN PRN IV 09/25/24 00:00 Morphine Sulfate 1 mg Q6HP PRN IV 09/25/24 00:00 Carvedilol 3.125 mg Q12HR PO 09/25/24 10:00 09/25/24 21:16 3.125 MG Losartan Potassium 50 mg DAILY PO 09/25/24 10:00 09/25/24 09:08 50 MG Clopidogrel Bisulfate 75 mg DAILY PO 09/25/24 10:00 09/25/24 09:07 75 MG Aspirin 81 mg DAILY PO 09/25/24 10:00 09/25/24 09:06 81 MG Sevelamer HCl 800 mg TIDWM PO 09/25/24 08:00 09/26/24 18:25 800 MG Atorvastatin Calcium 40 mg HS PO 09/25/24 22:00 09/25/24 21:17 40 MG Examination General Appearance: Alert, Oriented X3, Cooperative, HEENT: Atraumatic, PERRLA, EOMI, Mucous membrane moist/pink Respiratory: Clear to auscultation, Normal air movement Cardiovascular: Regular rate, Normal S1, Normal S2, No murmurs, no chest wall tenderness Abdominal: No tenderness, bowel sounds present Extremities: Pitting edema, Normal pulses, No tenderness/swelling Skin: No rashes, No breakdown, No significant lesion Neuro: Normal gait, Normal speech, Strength at 5/5 X4 ext, Normal tone, Sensation intact, Cranial nerves 3-12 NL, Reflexes 2+ Psych/Mental Status: Mental status NL, Mood NL laboratory and microbiology Laboratory Tests 09/26/24 09:17 Test 09/26/24 09:17 Range/Units Serum Glucose 86 74-106 mg/dL Microbiology Date/Time Source Procedure Growth Status 09/24/24 20:37 Voided Urine Urine Culture - Preliminary Resulted Problem List/Assessment/Plan Problem List/Assessment/Plan Assessment Possible GI bleed Coffee-ground emesis Thrombocytopenia End-stage renal disease on hemodialysis TTS Diabetes type 2, Hypertension Dyslipidemia Obesity, BMI 29.5 History of coronary artery disease (status post PCI x 3 stent, last one was 6 months) History of blood DVT left leg, hence on eliquis History of PAD, S/P bypass, left leg PLAN Protonix 40 mg b.i.d. Zofran GI consult Hydralazine 10 mg p.r.n. if SBP> 170 Continue Home medications IV Heparin 5000 units HOLD FOR for tonight. resume after edg tomorrow NPO at midnight for Code status: Full Goal of care was discussed for more than 35 minutes Case and plan discussed with Plan discussed with: Patient, Spouse My Orders My Orders Orders - L[facility] Procedure Category Date Status Time Communication Order ORDERS 09/26/24 Transmitted 16:56 Npo After Midnight DIET 09/26/24 Transmitted Dinner Date of Service: Sep 26, 2024 Billing Provider: ANGEL JONES MD Common Visit Codes: [id number] INP/OBS CARE(HIGH) L[facility] Sep 26, 2024 19:37 ANGEL JONES MD Oct 02, 2024 20:29
[2024-09-27 01:00] VITALS: BP 139/51; PULSE 60; RESP 17; TEMP 98.2; O2SAT 96
[2024-09-27 05:00] VITALS: BP 145/50; PULSE 61; RESP 17; TEMP 97.9; O2SAT 97
[2024-09-27 08:00] VITALS: RESP 17; O2SAT 96
[2024-09-27 09:00] VITALS: BP 145/60; PULSE 58; RESP 16; TEMP 98.3; O2SAT 96
[2024-09-27 09:43] LABS: Alanine Aminotransferase 14 U/L (7-40); Albumin 4.1 g/dL (3.2-4.8); Alkaline Phosphatase 65 U/L (46-116); Anion Gap 10 (5-15); Aspartate Aminotransferase 14 U/L (13-40); BUN/Creatinine Ratio 4.7 (10.0-20.0); Calcium 9.4 mg/dL (8.7-10.4); Carbon Dioxide 27 mmol/L (20-31); Chloride 100 mmol/L (98-107); Glucose 87 mg/dL (74-106); Potassium 4.2 mmol/L (3.5-5.1); Sodium 137 mmol/L (136-145)
[2024-09-27 09:44] LABS: Total Protein 6.5 g/dL (5.7-8.2)
[2024-09-27 09:45] LABS: Bilirubin, Total 1.3 mg/dL (0.2-1.0); Blood Urea Nitrogen 41 mg/dL (9-23)
[2024-09-27 09:47] LABS: Basophils # (auto) 0 10 ^3/uL (0-0.2); Basophils % (auto) 1.1 % (0.0-2.0); Eosinophils # (auto) 0.4 10 ^3/uL (0-0.8); Eosinophils % (auto) 9.1 % (0.0-7.0); Hematocrit 40.5 % (41.0-53.0); Hemoglobin 13.6 g/dL (13.5-17.5); Lymphocytes # (auto) 0.7 10 ^3/uL (0.4-5.4); Lymphocytes % (auto) 15.7 % (10.0-50.0); Mean Corpuscular Hemoglobin 31.2 pg (28.0-32.0); Mean Corpuscular Hgb Conc. 33.6 g/dL (32.0-36.0); Mean Corpuscular Volume 92.8 fL (80.0-100.0); Monocytes # (auto) 0.4 10 ^3/uL (0-1.3); Monocytes % (auto) 8.6 % (0.0-12.0); Neutrophils # (auto) 2.7 10 ^3/uL (1.6-8.6); Neutrophils % (auto) 65.5 % (37.0-80.0); Nucleated Red Blood Cells % 0.2 %; Platelet Count (auto) 103 10^3/uL (140-450); Red Blood Cells 4.36 10^6/uL (4.5-5.90); Red Cell Distribution Width 16.3 % (11.8-14.3); White Blood Cell 4.1 10^3/uL (4.4-10.8)
--- NOTE | 2024-09-27 10:58 | DVHPN2 ---
Progress Note - Dictate Date Seen: Sep 27, 2024 Has the PT tested + for MRSA If YES, has PT been informed?: No Medical Necessity Reason Pt with a Central, PICC or Fol: No Subjective No new complaints vital signs Vital Sign Date Time Temp Pulse Resp B/P (MAP) Pulse Ox O2 Delivery O2 Flow Rate FiO2 09/27/24 09:00 98.3 58 16 145/60 (88) 96 98.3 09/26/24 20:00 Room Air* 0 21 Total Intake and Output 09/26/24 09/26/24 09/27/24 15:00 23:00 07:00 Intake Total 0 ml 200 ml Balance 0 ml 200 ml medications Current Medications Medications Dose Ordered Sig/Anisa Route Start Time Stop Time Status Last Admin Dose Admin Nitroglycerin 0.4 mg Q5MINP PRN SL 09/24/24 23:45 Pantoprazole Sodium 40 mg BID IV 09/25/24 10:00 09/26/24 21:37 40 MG Hydralazine HCl 10 mg Q6HP PRN IV 09/25/24 00:00 Ondansetron HCl 4 mg Q6HPRN PRN IV 09/25/24 00:00 Morphine Sulfate 1 mg Q6HP PRN IV 09/25/24 00:00 Carvedilol 3.125 mg Q12HR PO 09/25/24 10:00 09/26/24 21:37 3.125 MG Losartan Potassium 50 mg DAILY PO 09/25/24 10:00 09/25/24 09:08 50 MG Clopidogrel Bisulfate 75 mg DAILY PO 09/25/24 10:00 09/25/24 09:07 75 MG Aspirin 81 mg DAILY PO 09/25/24 10:00 09/25/24 09:06 81 MG Sevelamer HCl 800 mg TIDWM PO 09/25/24 08:00 09/26/24 18:25 800 MG Atorvastatin Calcium 40 mg HS PO 09/25/24 22:00 09/26/24 21:36 40 MG objective General Appearance: Alert, Oriented X3, No acute distress HEENT: No JVD Respiratory: Bilateral good air entry Cardiovascular: Regular rate, Normal S1, Normal S2, No murmurs Abdominal: Normal bowel sounds, Soft, No tenderness Extremities: Edema + Neuro: No focal deficits laboratory and microbiology Laboratory Tests 09/27/24 08:40 Test 09/27/24 08:40 Range/Units Serum Glucose 87 74-106 mg/dL Assessment/Plan Problem List ESRD on HD Probable GI bleed Gastritis CAD s/p PCI HTN DM II HLD Assessment/Plan HD on TTS schedule Hb is stable . DC home Plan discussed with: Other QUIANA ROMEO MD Sep 27, 2024 10:58
--- NOTE | 2024-09-27 15:00 | DVHPN2 ---
Progress Note - Dictate Date Seen: Sep 27, 2024 Has the PT tested + for MRSA If YES, has PT been informed?: No Medical Necessity Reason Pt with a Central, PICC or Fol: No Subjective NO COMPLAINTS ; HEMOGLOBIN STABLE AT 13.6 PATIENT HAS HAD NO FURTHER EPISODES OF NAUSEA VOMITING OR COFFEE-GROUND EMESIS vital signs Vital Sign Date Time Temp Pulse Resp B/P (MAP) Pulse Ox O2 Delivery O2 Flow Rate FiO2 09/27/24 12:43 145/61 09/27/24 12:43 60 09/27/24 09:00 98.3 16 96 98.3 09/27/24 08:00 Room Air* 0 21 Total Intake and Output 09/26/24 09/26/24 09/27/24 15:00 23:00 07:00 Intake Total 0 ml 200 ml Balance 0 ml 200 ml medications Current Medications Medications Dose Ordered Sig/Anisa Route Start Time Stop Time Status Last Admin Dose Admin Nitroglycerin 0.4 mg Q5MINP PRN SL 09/24/24 23:45 Pantoprazole Sodium 40 mg BID IV 09/25/24 10:00 09/27/24 12:41 40 MG Hydralazine HCl 10 mg Q6HP PRN IV 09/25/24 00:00 Ondansetron HCl 4 mg Q6HPRN PRN IV 09/25/24 00:00 Morphine Sulfate 1 mg Q6HP PRN IV 09/25/24 00:00 Carvedilol 3.125 mg Q12HR PO 09/25/24 10:00 09/27/24 12:43 3.125 MG Losartan Potassium 50 mg DAILY PO 09/25/24 10:00 09/27/24 12:43 50 MG Clopidogrel Bisulfate 75 mg DAILY PO 09/25/24 10:00 09/25/24 09:07 75 MG Aspirin 81 mg DAILY PO 09/25/24 10:00 09/27/24 12:42 81 MG Sevelamer HCl 800 mg TIDWM PO 09/25/24 08:00 09/27/24 12:42 800 MG Atorvastatin Calcium 40 mg HS PO 09/25/24 22:00 09/26/24 21:36 40 MG objective General Appearance: Alert, Oriented X3, No acute distress HEENT: No JVD Respiratory: Bilateral good air entry Cardiovascular: Regular rate, Normal S1, Normal S2, No murmurs Abdominal: Normal bowel sounds, Soft, No tenderness Extremities: Edema + Neuro: No focal deficits laboratory and microbiology Laboratory Tests 09/27/24 08:40 Test 09/27/24 08:40 Range/Units Serum Glucose 87 74-106 mg/dL Problems(with codes): (1) NSAID-associated gastropathy (2) Coffee ground emesis (3) Diabetic nephropathy (4) CKD (chronic kidney disease) (5) HTN (hypertension) Prognosis PLAN I had initially planned to do an endoscopy for him to evaluate his upper GI tract However when the patient was brought down the anesthesia doctor was felt him to be high-risk because of his recent cardiac stent placement and pulmonary hypertension Endoscopic was canceled by anesthesia at this time and I discussed this with Patient is currently asymptomatic and is H&H is stable We will treat him conservatively with Protonix 40 mg p.o. twice a day Carafate 1 g p.o. twice a day Patient has been counseled about discontinuing ibuprofen and will take Tylenol instead as needed Possibly hold his aspirin for the next 3-5 days Outpatient follow up with me in 2-4 weeks to discuss outpatient elective panendoscopy once medically stabilized Once again thank you for allowing me to participate in the care of this patient Plan discussed with: Patient, Other (Dr Gordon) BOBBI JOHNSTON MD Sep 27, 2024 14:59
--- NOTE | 2024-09-27 15:39 | DVHDSRES ---
Discharge Summary Date of Admission Resident Creating Document: NICOLE DIAL RESIDENT Sep 24, 2024 at 23:54 Date of Discharge: Sep 27, 2024 Admitting Diagnosis Coffee ground emessis Labs/Diagnostic Data: Laboratory Results Test 09/27/24 08:40 09/25/24 05:58 09/24/24 23:55 09/24/24 20:37 White Blood Count 4.1 10^3/uL (4.4-10.8) Red Blood Count 4.36 10^6/uL (4.5-5.90) Hemoglobin 13.6 g/dL (13.5-17.5) Hematocrit 40.5 % (41.0-53.0) Mean Corpuscular Volume 92.8 fL (80.0-100.0) Mean Corpuscular Hemoglobin 31.2 pg (28.0-32.0) Mean Corpuscular Hemoglobin Concent 33.6 g/dL (32.0-36.0) Red Cell Distribution Width 16.3 % (11.8-14.3) Platelet Count 103 10^3/uL (140-450) Mean Platelet Volume 7.5 fL (6.9-10.8) Neutrophils (%) (Auto) 65.5 % (37.0-80.0) Lymphocytes (%) (Auto) 15.7 % (10.0-50.0) Monocytes (%) (Auto) 8.6 % (0.0-12.0) Eosinophils (%) (Auto) 9.1 % (0.0-7.0) Basophils (%) (Auto) 1.1 % (0.0-2.0) Neutrophils # (Auto) 2.7 10 ^3/uL (1.6-8.6) Lymphocytes # (Auto) 0.7 10 ^3/uL (0.4-5.4) Monocytes # (Auto) 0.4 10 ^3/uL (0-1.3) Eosinophils # (Auto) 0.4 10 ^3/uL (0-0.8) Basophils # (Auto) 0 10 ^3/uL (0-0.2) Nucleated Red Blood Cells 0.2 % Sodium Level 137 mmol/L (136-145) Potassium Level 4.2 mmol/L (3.5-5.1) Chloride Level 100 mmol/L (98-107) Carbon Dioxide Level 27 mmol/L (20-31) Anion Gap 10 (5-15) Blood Urea Nitrogen 41 mg/dL (9-23) Creatinine 8.74 mg/dL (0.700-1.30) Glomerular Filtration Rate Calc 6 mL/min (>90) BUN/Creatinine Ratio 4.7 (10.0-20.0) Serum Glucose 87 mg/dL (74-106) Calcium Level 9.4 mg/dL (8.7-10.4) Total Bilirubin 1.3 mg/dL (0.2-1.0) Aspartate Amino Transferase (AST) 14 U/L (13-40) Alanine Aminotransferase (ALT) 14 U/L (7-40) Alkaline Phosphatase 65 U/L (46-116) Total Protein 6.5 g/dL (5.7-8.2) Albumin 4.1 g/dL (3.2-4.8) B-Type Natriuretic Peptide 2887.67 pg/mL (0-100) Prothrombin Time 11.7 sec (9.3-11.8) Prothrombin Time INR 1.12 (0.9-1.15) Lipase 38 U/L (12-53) Urine Color Light-yellow (Yellow) Urine Clarity Clear (Clear) Urine pH 7.5 (5.0-9.0) Urine Specific [place] 1.010 (1.001-1.035) Urine Protein 3+ (Negative) Urine Ketones Negative (Negative) Urine Blood 1+ /uL (Negative) Urine Nitrite Negative (Negative) Urine Bilirubin Negative (Negative) Urine Urobilinogen Normal mg/dL (Negative) Urine Leukocyte Esterase Negative /uL (Negative) Urine RBC 12 /hpf (0 - 3) Urine Microscopic WBC 2 /HPF (0-3) Urine Squamous Epithelial Cells Few /hpf (<5) Urine Bacteria None seen /hpf (None Seen) Urine Glucose 2+ mg/dL (Normal) Urine Opiates Screen Neg (NEGATIVE) Urine Fentanyl Screen Neg (NEGATIVE) Urine Barbiturates Screen Neg (NEGATIVE) Urine Phencyclidine Screen Neg (NEGATIVE) Urine Amphetamines Screen Neg (NEGATIVE) Urine Benzodiazepines Screen Neg (NEGATIVE) Urine Cocaine Screen Neg (NEGATIVE) Urine Cannabinoids Screen Neg (NEGATIVE) Other Laboratory Tests 09/27/24 08:40 Brief Hx & Hospital Course: Hospital Course This 64-year-old male with past history of diabetes type 2, hypertension, dyslipidemia, coronary artery disease (status post PCI x 3 stent, last one was 6 months), ESRD with HD TTS presented to the ED with ground emesis at home and also on his way to the ED. According to the patient, he had dialysis on 09/23/24. At home he became dizzy, weak and vomited about 1/2 cup of coffee ground emesis. On his way, he had another coffee ground emesis. Patient also reported mild abdominal pain, headache, weakness, sore throat. Patient denies fever, chills, chest pain, shortness of breath, or any recent changes in bladder and bowel movement. Of note, Patient said he had bypass stenosis in his left leg and believed he was on eliquis. He had a stent placed about 6 months ago and now takes plavix and aspirin. Patient said he gets both the plavix and eliquis confused. On admission his hemoglobin remains stable and patient had anymore episodes of hematemesis. Patient was seen by GI for EGD. Patient was kept NPO went to EGD today; however, given the history of recent stent and ESRD, the anesthesiologist thinks is a high risk. Patient advised the patient follow up with GI team outpatient. Hgb today is 13.6, Hct: 40.5 Examination General Appearance: Alert, Oriented X3, Cooperative, HEENT: Atraumatic, PERRLA, EOMI, Mucous membrane moist/pink Respiratory: Clear to auscultation, Normal air movement Cardiovascular: Regular rate, Normal S1, Normal S2, No murmurs, no chest wall tenderness Abdominal: No tenderness, bowel sounds present Extremities: Pitting edema, Normal pulses, No tenderness/swelling Skin: No rashes, No breakdown, No significant lesion Neuro: Normal gait, Normal speech, Strength at 5/5 X4 ext, Normal tone, Sensation intact, Cranial nerves 3-12 NL, Reflexes 2+ Psych/Mental Status: Mental status NL, Mood NL Diagnoses Possible GI bleed Coffee-ground emesis Thrombocytopenia End-stage renal disease on hemodialysis TTS Diabetes type 2, Hypertension Dyslipidemia Obesity, BMI 29.5 History of coronary artery disease (status post PCI x 3 stent, last one was 6 months) History of blood DVT left leg, hence on eliquis History of PAD, S/P bypass, left leg Discharge plan Conservatively management with protonix 40 mg p.o. twice a day Carafate 1 g p.o. twice a day Patient has been counseled about discontinuing ibuprofen and will take Tylenol i nstead as needed Possibly hold his aspirin for the next 3-5 days Outpatient follow up with me in 2-4 weeks to discuss outpatient elective panendoscopy once medically stabilized Case and discharge plan discussed and reviewed with Dr. Gordon Consults/Reason for consult Coffee ground emessis Operations or Procedures EGD cancelled I had initially planned to do an endoscopy for him to evaluate his upper GI tract However when the patient was brought down the anesthesia doctor was felt him to be high-risk because of his recent cardiac stent placement and pulmonary hypertension Endoscopic was canceled by anesthesia at this time and I discussed this with Patient is currently asymptomatic and is H&H is stable We will treat him conservatively with Protonix 40 mg p.o. twice a day Carafate 1 g p.o. twice a day Patient has been counseled about discontinuing ibuprofen and will take Tylenol instead as needed Possibly hold his aspirin for the next 3-5 days Outpatient follow up with me in 2-4 weeks to discuss outpatient elective panendoscopy once medically stabilized Once again thank you for allowing me to participate in the care of this patient Plan discussed with: Patient, Other (Dr Gordon) Condition at Discharge: Good Final Diagnosis/Problems List Possible GI bleed Coffee-ground emesis Thrombocytopenia End-stage renal disease on hemodialysis TTS Diabetes type 2, Hypertension Dyslipidemia Anemia of chronic diease Obesity, BMI 29.5 History of coronary artery disease (status post PCI x 3 stent, last one was 6 months) History of blood DVT left leg, hence on eliquis History of PAD, S/P bypass, left leg Discharge Disposition: Home Discharge Instruct/Medications Diet: Renal Activity: No Restrictions, As Tolerated Follow Up/Referral: 7 days Medications: PROTONIX CARAFATE Home medications No Ibuprofen OR NSAIDS other than Aspirin Discharge Statement: "Patient was advised to return to the ER or call 911 if any headaches, dizziness, shortness of breath, chest pain, abdominal pain, bleeding, fevers, or worsening of medical condition. Patient was counseled about treatment plan, medications, possible side effects, patientverbalized understanding. All questions were answered to the best of my ability. This discharge took greater then 30 minutes in planning, reviewing documentation, counseling the patient, and discussing with other team members." ASSESSMENT ASSESSMENT Assessment Possible GI bleed Coffee-ground emesis Thrombocytopenia End-stage renal disease on hemodialysis TTS Diabetes type 2, Hypertension Dyslipidemia Obesity, BMI 29.5 History of coronary artery disease (status post PCI x 3 stent, last one was 6 months) History of blood DVT left leg, hence on eliquis History of PAD, S/P bypass, left leg Date of Service: Sep 27, 2024 Billing Provider: ANGEL GORDON MD Common Visit Codes: 23297-HWX/OBS DISCH DAY >30min L[address] JEWELL RESIDENT Sep 27, 2024 15:39 ANGEL GORDON MD Oct 02, 2024 20:30
[2024-09-27] MEDS ORDERED: PANT40TA2 PO (16:46)
[2024-09-27] MEDS ORDERED: SUCR1SUS26 GT (16:46)
[2024-09-27 16:51] VITALS: BP 145/61; PULSE 60; RESP 16; TEMP 36.8; O2SAT 100
[2024-09-27 17:00] VITALS: BP 152/61; PULSE 63; RESP 16; TEMP 97.5; O2SAT 97
== END 2024-09-27 17:30 | disposition home or self-care (01) | DRG 377 ==
LOC: ER 20:21 → OVERFLOW 23:54 → WEST WING 09-25 22:25
PROVIDERS: ADMIT Internal Medicine Geriatric Medicine; ATTEND Internal Medicine Geriatric Medicine
PROC: 5A1D70Z Performance of Urinary Filtration, Intermittent, Less than 6 Hours Per Day (ICD-10-PCS; principal; 2024-09-26)
DX: K29.71 Gastritis, unspecified, with bleeding (principal); J12.9 Viral pneumonia, unspecified; N18.6 End stage renal disease; I16.1 Hypertensive emergency; I12.0 Hypertensive chronic kidney disease with stage 5 chronic kidney disease or end stage renal disease; E11.22 Type 2 diabetes mellitus with diabetic chronic kidney disease; E66.9 Obesity, unspecified; E78.5 Hyperlipidemia, unspecified; I25.10 Atherosclerotic heart disease of native coronary artery without angina pectoris; D69.6 Thrombocytopenia, unspecified; E11.51 Type 2 diabetes mellitus with diabetic peripheral angiopathy without gangrene; D63.8 Anemia in other chronic diseases classified elsewhere; Z68.29 Body mass index [BMI] 29.0-29.9, adult; Z98.61 Coronary angioplasty status; Z99.2 Dependence on renal dialysis; Z87.891 Personal history of nicotine dependence; Z86.718 Personal history of other venous thrombosis and embolism; Z79.82 Long term (current) use of aspirin; Z79.84 Long term (current) use of oral hypoglycemic drugs; Z79.899 Other long term (current) drug therapy
CPT/HCPCS: 36415; 71045; 74176; 76705; 80048; 80053; 80307; 81001; 83690; 83880; 85025; 85610; 87086; 90935; 93306; G0378; J2470